=== PATIENT | male | born 1940 | race Caucasian/White ===

== ENCOUNTER → 2018-02-27 | Outpatient (CLI) | payer MEDICARE ==
[~2018-02-27] MED LIST: REGADENOSON 0.4 MG/5 ML DISP.SYRIN. IV ONE
--- NOTE | 2018-02-27 13:02 | PCVCIMAG ---
APPROVED REPORT Imaging Protocol: Rest Tc-99m/Stress Tc-99m 1 day Study performed: 02/27/2018 09:51:37 Indication: Atrial Fibrillation, Dyspnea, Near Syncope Patient Location: Out-Patient Stress Nurse: Samantha Westfall RN [place] Tech:Collin SILVER LangleyMT Ht: 6 ft 2 in Wt: 185 lbs BSA: 2.10 m2 HR: 60 bpm BP: 170/82 mmHg BMI: 23.7 Rhythm: Sinus Bradycardia Medical History Medications: Diltiazem, Metoprolol, Pantoprazole, Carafate Allergies: No known drug allergies Cardiac Risk Factors: Age, Afib Pretest Chest Pain Characteristics: No chest pain Exercise History: Physically active Meds Held (24 hrs): Metoprolol Resting Data Rest SPECT myocardial perfusion imaging was performed in supine position 45 minutes following the intravenous injection of 10.7 mCi of Tc-99m Sestamibi. Time of rest injection: 0900 Date: 02/27/2018 Administration Route: IV Administration Site: Right Hand Pharmacologic Stress Pharmacologic stress test was performed by injecting Regadenoson 0.4 mg IV push over 10-15 seconds immediately followed by the intravenous injection of 31.4 mCi of Tc-99m Sestamibi. Time of stress injection: 1035 Date: 02/27/2018 Administration Route: IV Administration Site: Right Hand Gated Stress SPECT was performed 45 minutes after stress injection. The images were gated to evaluate regional wall motion and calculate left ventricular ejection fraction. Stress Test Details Stress Test: Pharmacologic stress testing performed using 0.4 mg of regadenoson per 5 mL given IV over 10 seconds. Reason for pharmacologic stress test: physical limitation. HRMax Heart Rate (APMHR): 145 bpm Resting HR: 60 bpmTarget HR (85% APMHR): 123 bpm Max HR Achieved: 94 bpm % of APMHR: 64 Recovery HR: 73 bpm BP Resting BP: 170/82 mmHg Recovery BP: 174/93 mmHg ECG Resting ECG: Sinus Bradycardia Stress ECG: Sinus Rhythm ST Change: Non-ischemic Arrhythmia: None Recovery ECG: Sinus Rhythm Clinical Reason for Termination: Completed protocol Stress Symptoms: Dyspnea, Leg Fatigue(Burning) Exercise duration: 4 min 00 sec Symptoms resolved during recovery. Study Quality Study: Good Study Data Post stress, the left ventricular ejection was 70%.. SSS: 6 SRS: 2 SDS: 4 TID = 1.10. Perfusion No evidence of stress induced ischemia or prior myocardial infarction. Wall Motion Normal left ventricular size and function with no regional wall motion abnormalities. Nuclear Conclusion No evidence of stress induced ischemia or prior myocardial infarction. Normal left ventricular size and function with no regional wall motion abnormalities. Post stress, the left ventricular ejection was 70%. No prior study available for comparison. Interpreted by: Mitesh Lofton MD Electronically Approved: 02/27/2018 12:28:25
== END | disposition home or self-care (01) ==
LOC: PCVCIMAG 10:59
PROVIDERS: ATTEND Internal Medicine Cardiovascular Disease
DX: I48.0 Paroxysmal atrial fibrillation (principal); R06.09 Other forms of dyspnea; R55 Syncope and collapse
CPT/HCPCS: 78452; 93005; 93017; A9500; G0463; J2785